=== PATIENT | female | born 1970 | race Hispanic/Latino ===

== ENCOUNTER 2019-10-06 17:36 | Emergency (ER) | payer BC ==
--- OUTSIDE RECORDS SUMMARY | 2019-10-06 17:37 | XMS REPORT ---
:1970 Author Organization [employer] Care Team Providers Name Role Phone Rodas, Na Provider Role Unavailable Allergies No Known Allergies Problems Problem Type Condition Code Onset Dates Condition Status Problem Vitamin D deficiency E55.9 Active Problem Hyperlipidemia E78.5 Active Problem Anxiety F41.9 Active Problem HUGO (obstructive sleep apnea) G47.33 Active Problem Other headache syndrome G44.89 Active Problem Type 2 diabetes mellitus without E11.9 Active complication, without long-term current use of insulin Problem Prediabetes R73.03 Active Problem Essential hypertension I10 Active Problem Feeling grief F43.21 Active Problem Daytime somnolence R40.0 Active Problem Obsessive-compulsive disorder F42 Active Problem Vitamin B 12 deficiency E53.8 Active Problem Viral gastroenteritis A08.4 Active Problem Snoring R06.83 Active Problem Obesity (BMI 35.0-39.9 without E66.9 Active comorbidity) Problem Obesity (BMI 30-39.9) E66.9 Active Problem Depression with anxiety F41.8 Active Problem Hyperglycemia R73.9 Active Medications No Known Medications Results No Known Results Summary Purpose eClinicalWorks Submission
--- OUTSIDE RECORDS SUMMARY | 2019-10-06 17:38 | XMS REPORT ---
:1970 Author Organization [employer] Care Team Providers Name Role Phone Rodas, Na Provider Role Unavailable Allergies, Adverse Reactions, Alerts Substance Reaction Event Type Bactrim DS Info Not Available Drug Allergy Problems Problem Type Condition Code Onset Dates Condition Status Assessment Other fatigue R53.83 Active Problem Obesity (BMI 30-39.9) E66.9 Active Assessment Obesity (BMI 30-39.9) E66.9 Active Problem Hyperglycemia R73.9 Active Assessment HUGO (obstructive sleep apnea) G47.33 Active Problem Vitamin D deficiency E55.9 Active Problem Hyperlipidemia E78.5 Active Problem Anxiety F41.9 Active Problem HUGO (obstructive sleep apnea) G47.33 Active Problem Other headache syndrome G44.89 Active Assessment Essential hypertension I10 Active Assessment Hyperlipidemia E78.5 Active Problem Type 2 diabetes mellitus without E11.9 Active complication, without long-term current use of insulin Assessment Depression with anxiety F41.8 Active Problem Prediabetes R73.03 Active Problem Essential hypertension I10 Active Problem Feeling grief F43.21 Active Problem Daytime somnolence R40.0 Active Problem Obsessive-compulsive disorder F42 Active Problem Vitamin B 12 deficiency E53.8 Active Assessment Type 2 diabetes mellitus without E11.9 Active complication, without long-term current use of insulin Problem Viral gastroenteritis A08.4 Active Problem Snoring R06.83 Active Problem Obesity (BMI 35.0-39.9 without E66.9 Active comorbidity) Problem Depression with anxiety F41.8 Active Medications Medication Code Code Instructions Start End Status Dosage System Date Date C[place] [facility] [place] 606[place]32837 10 MG Active 1 TABLET ONCE A DAY ORALLY 90 DAYS Losartan [facility] [place] 89443095737 25 Orally Once Active 1 tablet Potassium a day Alprazolam [place] 97650065423 0.25 MG Orally Active 1 tablet Twice a day prn anxiety Losartan [facility] [place] 48362568221 25 MG Orally Active 1 tablet Potassium Once a day Vitamin D3 ND 88123977009 50,000 PO once Active one tab a week Cyanocobalamin [facility] [place] [address]-14 1000 MCG Orally Active 1 tablet Once a day Crestor [facility] [place] 39057283302 10 MG Orally Active 1 tablet Once a day MetFORMIN HCl ER [facility] [place] 51261330388 500 MG Orally Aug 27, Active 1 tablet Once a day 2018 with evening meal Lexapro [facility] [place] 24794747722 20 MG Orally Active 1 tablet Once a day Azithromycin [facility] [place] 84533942350 250 MG Orally Sep 18, Active 2 tablets Once a day 2017 on the first day, then 1 tablet daily for 4 days Results No Known Results Summary Purpose eClinicalWorks Submission
--- NOTE | 2019-10-06 18:15 | ER ---
Nurse's Notes [facility] Name: Candida Sotomayor Age: 49 yrs Sex: Female : 1970 Arrival Date: 10/06/2019 Time: 17:36 Bed Waiting Private MD: Keesha Rodas Diagnosis: Presentation: 10/06 17:50 Presenting complaint: Patient states: felt dizzy and weakness in entire body while sg driving today, reports having went to [employer] and eating some hamburger yoel, has felt better now after arriving at the ER. Transition of care: patient was not received from another setting of care. Onset of symptoms was October 06, 2019. Risk Assessment: Do you want to hurt yourself or someone else? Patient reports no desire to harm self or others. Initial Sepsis Screen: Does the patient meet any 2 criteria? No. Patient's initial sepsis screen is negative. Does the patient have a suspected source of infection? No. Patient's initial sepsis screen is negative. Care prior to arrival: None. 17:50 Method Of Arrival: Ambulatory sg 17:50 Acuity: MISHA 3 sg Historical: - Allergies: 17:50 Sulfa (Sulfonamide Antibiotics); sg - PMHx: 17:50 Anxiety; sg - PSHx: 17:50 None; sg - Immunization history:: Adult Immunizations unknown. - Social history:: Smoking status: Patient/guardian denies using tobacco. - Ebola Screening: : Patient negative for fever greater than or equal to 101.5 degrees Fahrenheit, and additional compatible Ebola Virus Disease symptoms Patient denies exposure to infectious person Patient denies travel to an Ebola-affected area in the 21 days before illness onset No symptoms or risks identified at this time. Screenin:59 Abuse screen: Denies threats or abuse. Denies injuries from another. Nutritional sg screening: No deficits noted. VAN Screening: Arm Drift: Patient shows no arm weakness. Patient is VAN negative. Assessment: 18:12 Reassessment: pt wanted her blood sugar checked and was feeling better at time of iw triage. Vital Signs: 17:58 BP 137 / 79; Pulse 87; Resp 18; Temp 100.0(TE); Pulse Ox 99% on R/A; sg NIH Stroke Scale Scores: 17:59 NIHSS Score: 0 sg ED Course: 17:36 Patient arrived in ED. as 17:37 Keesha Rodas MD is Private Physician. as 17:49 Arm band placed on. sg 17:58 Triage completed. sg Administered Medications: No medications were administered Outcome: 18:13 Eloped from waiting room, before seeing physician Time discovered patient gone: iw October 06, 2019 at 18:13 18:13 Patient left the ED. iw NIH Stroke Scale - NIH Stroke Score Date: 10/06/2019 Time: 17:59 Total Score = 0 1a. Level of Consciousness (LOC) - 0(Alert) 1b. Level of Consciousness (LOC) (Year \T\ Age) - 0(Both) 1c. LOC Commands (Open \T\ Closes Eyes/Clinical Application Manager) - 0(Both) 2. Best Gaze (Lateral Gaze Paresis) - 0(Normal) 3. Visual Field Loss - 0(No visual loss) 4. Facial Palsy - 0(Normal) 5a. Left Arm: Motor (10-second hold) - 0(No drift) 5b. Right Arm: Motor (10-second hold) - 0(No drift) 6a. Left Leg: Motor (5-second hold - always test supine) - 0(No drift) 6b. Right Leg: Motor (5-second hold - always test supine) - 0(No drift) 7. Limb Ataxia (finger/nose \T\ heel/henderson - test with eyes open) - 0(Absent) 8. Sensory Loss (pinprick arms/legs/face) - 0(Normal) 9. Best Language: Aphasia (description/naming/reading) - 0(No aphasia) 10. Dysarthria (speech clarity - read or repeat words) - 0(Normal) 11. Extinction and Inattention (visual/tactile/auditory/spatial/personal) - 0(No abnormality) Initials: sg Signatures: Miah Lorenz, RN RN sg Linda Ham Irene, RN RN iw
[2019-10-06 21:24] VITALS: BP 137/79; TEMP 100; O2SAT 99
== END 2019-10-06 18:13 | disposition left against medical advice (07) ==
LOC: ER 17:36
DX: Z53.21 Procedure and treatment not carried out due to patient leaving prior to being seen by health care provider (principal); Z88.2 Allergy status to sulfonamides
CPT/HCPCS: 99281

== ENCOUNTER 2023-03-14 00:58 | Emergency (ER) | payer BC ==
--- OUTSIDE RECORDS SUMMARY | 2023-03-14 01:02 | XMS REPORT | Continuity of Care Document ---
:1970 Author Organization [facility] t Address [address] [place] [address] Care Team Providers Name Role Phone Rimma Butler Attending Clinician Unavailable Keesha Rodas Attending Clinician Unavailable Payers Payer Name Policy Type Policy Number Effective Date Expiration Date Chana abdul [facility] [id number] 2021 CHOICE/CHOICE 00:00:00 PLUS [employer] Blue 6 [id number] 2022 [facility] 00:00:00 [place] [id number] 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 - [facility] [id number] Depression Problem Co mmon with Spirit anxiety - [facility] [id number] Body mass Problem Com mon index Spirit [BMI] - [facility] 37.0-37.9, [facility] Anxiety Anxiety Problem Common [facility] Hyperlipid Hyperlipid Problem C ommon emia emia [facility] [id number] Prediabete Problem Co mmon s [facility] Vitamin D Vitamin D Problem Com mon deficiency deficiency Sp jonathan [facility] [id number] Hyperglyce Problem Com mon gaurav [facility] [id number] Essential Problem Comm on hypertensi [facility] on [facility] Obstructiv HUGO Problem Commo n e sleep (obstructi Spiri t apnea ve sleep - [facility] syndrome apnea) [facility] 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 - [facility] without without complicati complicati Yara kes on on, [facility] long-term current use of insulin [id number] Stress at Problem Com mon home [facility] Allergies, Adverse Reactions, Alerts Allergy Allergy Status Severity Reaction(s) Onset Inactive Treating Comm ents Source Name Type Date Date Clinician sulfamet sulfamet Active Unknown Commo n hoxazole hoxazole [facility] / / - [facility] trimetho trimetho [facility] Social History Social Habit Start Date Stop Date Quantity Comments Source History of Tobacco Use Co mmon [facility] Sex Assigned At Com [facility] Smoking Status Start Date Stop Date Source Never Smoker Common [facility] Medications Ordered Filled Start Stop Current Ordering Indication Dosage Frequency Signature Comments Components Source Medication Medication Date Date Medication? Clinician (SIG) Name Name Mehnaz Mehnaz 2021-10 No Trulicity 1.5mg/0.5ml 1.5mg/0.5ml 12 1.5mg/0.5m 00:00: l 00 Allydaphne Allydaphne 2021-10 No Trulicity 1.5mg/0.5ml 1.5mg/0.5ml 12 1.5mg/0.5m 00:00: l 00 Mounjaro Mounjaro 2021-10 Mounjaro 2.5 2.5 10-30 1206 2.5 MG/0.5ML MG/0.5ML 00:00: 00:00 MG/0.5ML 00 :00 Ozempic Ozempic No Ozempic (0.25 or (0.25 or 8-01 (0.25 or 0.5 0.5 00:00: 0.5 MG/DOSE) 2 MG/DOSE) 2 00 MG/DOSE) 2 MG/1.5ML MG/1.5ML MG/1.5ML Ozempic Ozempic No Ozempic (0.25 or (0.25 or 8-01 (0.25 or 0.5 0.5 00:00: 0.5 MG/DOSE) 2 MG/DOSE) 2 00 MG/DOSE) 2 MG/1.5ML MG/1.5ML MG/1.5ML Ozempic Ozempic 2021- No Ozempic (0.25 or (0.25 or 8-01 09-30 (0.25 or 0.5 0.5 00:00: 00:00 0.5 MG/DOSE) 2 MG/DOSE) 2 00 :00 MG/DOSE) 2 MG/1.5ML MG/1.5ML MG/1.5ML ALPRAZolam ALPRAZolam 2020-10 No 1{table ALPRAZolam 0.25 MG 0.25 MG 0-28 t} 0.25 MG 00:00: 00 MetFORMIN MetFORMIN 2018- Yes Na Rodas 1 tablet Common HCl ER HCl ER 0-29 with Spirit 00:00: evening - [facility] 00 meal [facility] Alprazolam Alprazolam Yes Na Rodas 1 tablet Common 07-10 Spirit 00:00: - [facility] Losartan Losartan Yes Na Rodas 1/2 tablet Common Potassium Potassium 9-11 Spiri t 00:00: - [facility] 00 [facility] Cyanocobala Cyanocobala Yes Na Rodas 1 tablet Common min min [facility] Vitamin D3 Vitamin D3 Yes Na Rodas one tab Common [facility] Lexapro Lexapro Yes Na Rodas 1 tablet Co [facility] Crestor Crestor Yes Na Rodas 1 tablet Co [facility] Lexapro Lexapro Yes Na Rodas 1 tablet Co [facility] Losartan Losartan Yes Na Rodas 1 tablet Common Potassium Potassium Spiri - [facility] Crestor Crestor Yes Na Rodas 1 TABLET Co mmon ONCE A DAY Spirit ORALLY 90 - [facility] DAYS [facility] metFORMIN metFORMIN No 1{table QD metFORMIN HCl ER 500 HCl ER 500 t_with_ HCl ER 500 MG MG evening MG _meal} Cyanocobala Cyanocobala No 1{table QD Cyanocobal min 1000 min 1000 t} nunez 1000 MCG MCG MCG Crestor 10 Crestor 10 No 1{table QD Crestor 10 MG MG t} MG Crestor 10 Crestor 10 No Crestor 10 MG MG MG Losartan Losartan No QD Losartan Potassium Potassium Potassium 25 MG 25 MG 25 MG Lexapro 20 Lexapro 20 No 1{table QD Lexapro 20 MG MG t} MG Lexapro 20 Lexapro 20 No 1{table QD Lexapro 20 MG MG t} MG Cyanocobala Cyanocobala No 1{table QD Cyanocobal min 1000 min 1000 t} nunez 1000 MCG MCG MCG Vitamin D3 Vitamin D3 No Vitamin D3 50,000 50,000 50,000 Crestor 10 Crestor 10 No 1{table QD Crestor 10 MG MG t} MG Losartan Losartan No 1{table QD Losartan Potassium Potassium t} Potassium 25 25 25 ALPRAZolam ALPRAZolam No 1{table ALPRAZolam 0.25 MG 0.25 MG t} 0.25 MG metFORMIN metFORMIN No 1{table QD metFORMIN HCl ER 500 HCl ER 500 t_with_ HCl ER 500 MG MG evening MG _meal} Losartan Losartan No QD Losartan Potassium Potassium Potassium 25 MG 25 MG 25 MG Crestor 10 Crestor 10 No Crestor 10 MG MG MG Lexapro 20 Lexapro 20 No 1{table QD Lexapro 20 MG MG t} MG Lexapro 20 Lexapro 20 No 1{table QD Lexapro 20 MG MG t} MG Cyanocobala Cyanocobala No 1{table QD Cyanocobal min 1000 min 1000 t} nunez 1000 MCG MCG MCG Vitamin D3 Vitamin D3 No Vitamin D3 50,000 50,000 50,000 Crestor 10 Crestor 10 No 1{table QD Crestor 10 MG MG t} MG Losartan Losartan No 1{table QD Losartan Potassium Potassium t} Potassium 25 25 25 ALPRAZolam ALPRAZolam No 1{table ALPRAZolam 0.25 MG 0.25 MG t} 0.25 MG metFORMIN metFORMIN No 1{table QD metFORMIN HCl ER 500 HCl ER 500 t_with_ HCl ER 500 MG MG evening MG _meal} Losartan Losartan No QD Losartan Potassium Potassium Potassium 25 MG 25 MG 25 MG Crestor 10 Crestor 10 No Crestor 10 MG MG MG Lexapro 20 Lexapro 20 No 1{table QD Lexapro 20 MG MG t} MG metFORMIN metFORMIN No 1{table QD metFORMIN HCl ER 500 HCl ER 500 t_with_ HCl ER 500 MG MG evening MG _meal} Crestor 10 Crestor 10 No Crestor 10 MG MG MG Cyanocobala Cyanocobala No 1{table QD Cyanocobal min 1000 min 1000 t} nunez 1000 MCG MCG MCG Losartan Losartan No 1{table QD Losartan Potassium Potassium t} Potassium 25 25 25 Crestor 10 Crestor 10 No 1{table QD Crestor 10 MG MG t} MG Lexapro 20 Lexapro 20 No 1{table QD Lexapro 20 MG MG t} MG Losartan Losartan No QD Losartan Potassium Potassium Potassium 25 MG 25 MG 25 MG Lexapro 20 Lexapro 20 No 1{table QD Lexapro 20 MG MG t} MG Vitamin D3 Vitamin D3 No Vitamin D3 50,000 50,000 50,000 ALPRAZolam ALPRAZolam No 1{table ALPRAZolam 0.25 MG 0.25 MG t} 0.25 MG Lexapro 20 Lexapro 20 No 1{table QD Lexapro 20 MG MG t} MG Crestor 10 Crestor 10 No Crestor 10 MG MG MG Cyanocobala Cyanocobala No 1{table QD Cyanocobal min 1000 min 1000 t} nunez 1000 MCG MCG MCG Losartan Losartan No 1{table QD Losartan Potassium Potassium t} Potassium 25 25 25 Crestor 10 Crestor 10 No 1{table QD Crestor 10 MG MG t} MG Vitamin D3 Vitamin D3 No Vitamin D3 50,000 50,000 50,000 Lexapro 20 Lexapro 20 No 1{table QD Lexapro 20 MG MG t} MG metFORMIN metFORMIN No 1{table QD metFORMIN HCl ER 500 HCl ER 500 t_with_ HCl ER 500 MG MG evening MG _meal} Losartan Losartan No QD Losartan Potassium Potassium Potassium 25 MG 25 MG 25 MG ALPRAZolam ALPRAZolam No 1{table ALPRAZolam 0.25 MG 0.25 MG t} 0.25 MG Lexapro 20 Lexapro 20 No 1{table QD Lexapro 20 MG MG t} MG Crestor 10 Crestor 10 No Crestor 10 MG MG MG Cyanocobala Cyanocobala No 1{table QD Cyanocobal min 1000 min 1000 t} nunez 1000 MCG MCG MCG Losartan Losartan No 1{table QD Losartan Potassium Potassium t} Potassium 25 25 25 Crestor 10 Crestor 10 No 1{table QD Crestor 10 MG MG t} MG Vitamin D3 Vitamin D3 No Vitamin D3 50,000 50,000 50,000 Lexapro 20 Lexapro 20 No 1{table QD Lexapro 20 MG MG t} MG metFORMIN metFORMIN No 1{table QD metFORMIN HCl ER 500 HCl ER 500 t_with_ HCl ER 500 MG MG evening MG _meal} Losartan Losartan No QD Losartan Potassium Potassium Potassium 25 MG 25 MG 25 MG ALPRAZolam ALPRAZolam No 1{table ALPRAZolam 0.25 MG 0.25 MG t} 0.25 MG Cyanocobala Cyanocobala No 1{table QD Cyanocobal min 1000 min 1000 t} nunez 1000 MCG MCG MCG Lexapro 20 Lexapro 20 No 1{table QD Lexapro 20 MG MG t} MG Vitamin D3 Vitamin D3 No Vitamin D3 50,000 50,000 50,000 metFORMIN metFORMIN No 1{table QD metFORMIN HCl ER 500 HCl ER 500 t_with_ HCl ER 500 MG MG evening MG _meal} ALPRAZolam ALPRAZolam No 1{table ALPRAZolam 0.25 MG 0.25 MG t} 0.25 MG Ozempic Ozempic No Ozempic (0.25 or (0.25 or (0.25 or 0.5 0.5 0.5 MG/DOSE) 2 MG/DOSE) 2 MG/DOSE) 2 MG/1.5ML MG/1.5ML MG/1.5ML Crestor 10 Crestor 10 No 1{table QD Crestor 10 MG MG t} MG Losartan Losartan No QD Losartan Potassium Potassium Potassium 25 MG 25 MG 25 MG Cyanocobala Cyanocobala No 1{table QD Cyanocobal min 1000 min 1000 t} nunez 1000 MCG MCG MCG Losartan Losartan No QD Losartan Potassium Potassium Potassium 25 MG 25 MG 25 MG ALPRAZolam ALPRAZolam No 1{table ALPRAZolam 0.25 MG 0.25 MG t} 0.25 MG Crestor 10 Crestor 10 No 1{table QD Crestor 10 MG MG t} MG Ozempic Ozempic No Ozempic (0.25 or (0.25 or (0.25 or 0.5 0.5 0.5 MG/DOSE) 2 MG/DOSE) 2 MG/DOSE) 2 MG/1.5ML MG/1.5ML MG/1.5ML Ozempic Ozempic No Ozempic (0.25 or (0.25 or (0.25 or 0.5 0.5 0.5 MG/DOSE) 2 MG/DOSE) 2 MG/DOSE) 2 MG/1.5ML MG/1.5ML MG/1.5ML Lexapro 20 Lexapro 20 No 1{table QD Lexapro 20 MG MG t} MG Vitamin D3 Vitamin D3 No Vitamin D3 50,000 50,000 50,000 Losartan Losartan No QD Losartan Potassium Potassium Potassium 25 MG 25 MG 25 MG Vitamin D3 Vitamin D3 No Vitamin D3 50,000 50,000 50,000 Crestor 10 Crestor 10 No 1{table QD Crestor 10 MG MG t} MG Lexapro 20 Lexapro 20 No 1{table QD Lexapro 20 MG MG t} MG ALPRAZolam ALPRAZolam No 1{table ALPRAZolam 0.25 MG 0.25 MG t} 0.25 MG Cyanocobala Cyanocobala No 1{table QD Cyanocobal min 1000 min 1000 t} nunez 1000 MCG MCG MCG Lexapro 20 Lexapro 20 No 1{table QD Lexapro 20 MG MG t} MG Vitamin D3 Vitamin D3 No Vitamin D3 50,000 50,000 50,000 Crestor 10 Crestor 10 No 1{table QD Crestor 10 MG MG t} MG Losartan Losartan No QD Losartan Potassium Potassium Potassium 25 MG 25 MG 25 MG Cyanocobala Cyanocobala No 1{table QD Cyanocobal min 1000 min 1000 t} nunez 1000 MCG MCG MCG ALPRAZolam ALPRAZolam No 1{table ALPRAZolam 0.25 MG 0.25 MG t} 0.25 MG ALPRAZolam ALPRAZolam No 1{table ALPRAZolam 0.25 MG 0.25 MG t} 0.25 MG Cyanocobala Cyanocobala No 1{table QD Cyanocobal min 1000 min 1000 t} nunez 1000 MCG MCG MCG Crestor 10 Crestor 10 No 1{table QD Crestor 10 MG MG t} MG Vitamin D3 Vitamin D3 No Vitamin D3 50,000 50,000 50,000 Losartan Losartan No QD Losartan Potassium Potassium Potassium 25 MG 25 MG 25 MG Lexapro 20 Lexapro 20 No 1{table QD Lexapro 20 MG MG t} MG Cyanocobala Cyanocobala No 1{table QD Cyanocobal min 1000 min 1000 t} nunez 1000 MCG MCG MCG Lexapro 20 Lexapro 20 No 1{table QD Lexapro 20 MG MG t} MG Vitamin D3 Vitamin D3 No Vitamin D3 50,000 50,000 50,000 metFORMIN metFORMIN No 1{table QD metFORMIN HCl ER 500 HCl ER 500 t_with_ HCl ER 500 MG MG evening MG _meal} ALPRAZolam ALPRAZolam No 1{table ALPRAZolam 0.25 MG 0.25 MG t} 0.25 MG Ozempic Ozempic No Ozempic (0.25 or (0.25 or (0.25 or 0.5 0.5 0.5 MG/DOSE) 2 MG/DOSE) 2 MG/DOSE) 2 MG/1.5ML MG/1.5ML MG/1.5ML Crestor 10 Crestor 10 No 1{table QD Crestor 10 MG MG t} MG Losartan Losartan No QD Losartan Potassium Potassium Potassium 25 MG 25 MG 25 MG Vitamin D3 Vitamin D3 No Vitamin D3 50,000 50,000 50,000 Losartan Losartan No 1{table QD Losartan Potassium Potassium t} Potassium 25 25 25 Lexapro 20 Lexapro 20 No 1{table QD Lexapro 20 MG MG t} MG Lexapro 20 Lexapro 20 No 1{table QD Lexapro 20 MG MG t} MG Losartan Losartan No QD Losartan Potassium Potassium Potassium 25 MG 25 MG 25 MG Crestor 10 Crestor 10 No Crestor 10 MG MG MG Crestor 10 Crestor 10 No 1{table QD Crestor 10 MG MG t} MG Cyanocobala Cyanocobala No 1{table QD Cyanocobal min 1000 min 1000 t} nunez 1000 MCG MCG MCG metFORMIN metFORMIN No 1{table QD metFORMIN HCl ER 500 HCl ER 500 t_with_ HCl ER 500 MG MG evening MG _meal} Lexapro 20 Lexapro 20 No 1{table QD Lexapro 20 MG MG t} MG ALPRAZolam ALPRAZolam No 1{table ALPRAZolam 0.25 MG 0.25 MG t} 0.25 MG Losartan Losartan No 1{table QD Losartan Potassium Potassium t} Potassium 25 25 25 Vitamin D3 Vitamin D3 No Vitamin D3 50,000 50,000 50,000 Immunizations Ordered Immunization Filled Immunization Date Status Commen ts Source Name Name Afluria single dose Afluria single dose 2020-07-27 Completed [facility] 15:01:00 [facility] Afluria single dose Afluria single dose 2020-07-27 Completed [facility] 15:01:00 [facility] Afluria single dose Afluria single dose 2020-07-27 Completed [facility] 15:01:00 [facility] Afluria single dose Afluria single dose 2020-07-27 Completed [facility] 15:01:00 [facility] Afluria single dose Afluria single dose 2020-07-27 Completed Common [facility] 15:01:00 [facility] Afluria single dose Afluria single dose 2020-07-27 Completed Common [facility] 15:01:00 [facility] Afluria single dose Afluria single dose 2020-07-27 Completed Common [facility] 15:01:00 [facility] Afluria single dose Afluria single dose 2020-07-27 Completed Common [facility] 15:01:00 [facility] Afluria single dose Afluria single dose 2020-07-27 Completed Common [facility] 15:01:00 [facility] Afluria single dose Afluria single dose 2020-07-27 Completed Common [facility] 15:01:00 [facility] Afluria single dose Afluria single dose 2020-07-27 Completed Common [facility] 15:01:00 [facility] Afluria single dose Afluria single dose 2020-07-27 Completed Common [facility] 15:01:00 [facility] Afluria single dose Afluria single dose 2020-07-27 Completed Common [facility] 15:01:00 [facility] Vital Signs Vital Name Observation Time Observation Value Comments Source height 2022-09-21 09:40:00 61.50 [in_i] Common S pirit [facility] weight 2022-09-21 09:40:00 184.7 [lb_av] [facility] Spirit [facility] bmi 2022-09-21 09:40:00 34.33 kg/m2 Common S pirit - [facility] height 2022-08-08 09:40:00 61.50 [in_i] Common S pirit [facility] weight 2022-08-08 09:40:00 184.6 [lb_av] [facility] temperature 2022-08-08 09:40:00 97.7 [degF] Common S pirit [facility] bmi 2022-08-08 09:40:00 34.31 kg/m2 Common S pirit [facility] oximetry 2022-08-08 09:40:00 95 % Common S pirit [facility] respiratory rate 2022-08-08 09:40:00 16 /min Comm on [facility] blood pressure 2022-08-08 09:40:00 135 mm[Hg] Common Spirit - systolic [facility] blood pressure 2022-08-08 09:40:00 66 mm[Hg] Common Spirit - diastolic [facility] height 2022-07-07 16:40:00 61.50 [in_i] [facility] 2022-07-07 16:40:00 186.6 [lb_av] [facility] temperature 2022-07-07 16:40:00 97.9 [degF] Common S pirit [facility] bmi 2022-07-07 16:40:00 34.68 kg/m2 Common S pirit [facility] oximetry 2022-07-07 16:40:00 95 % Common S pirit [facility] respiratory rate 2022-07-07 16:40:00 16 /min Comm on [facility] blood pressure 2022-07-07 16:40:00 131 mm[Hg] Common Spirit - systolic [facility] blood pressure 2022-07-07 16:40:00 78 mm[Hg] Common Spirit - diastolic [facility] height 2022-05-30 17:00:00 61.50 [in_i] Common S pirit - [facility] weight 2022-05-30 17:00:00 198 [lb_av] Common [facility] bmi 2022-05-30 17:00:00 36.8 kg/m2 [facility] height 2021-08-26 11:20:00 61.50 [in_i] [facility] weight 2021-08-26 11:20:00 193 [lb_av] [facility] bmi 2021-08-26 11:20:00 35.87 kg/m2 [facility] Procedures This patient has no known procedures. Encounters Start End Encounter Admission Attending Care Care Encounter Source Date/Time Date/Time Type Type Clinicians Facility Department ID 2022-12-15 Outpatient Butler, STLMLC STLMLC [id number] Common 14:05:00 Rimma [id number] [facility] 2022-09-20 Outpatient Rodas, Na STLMLC STLMLC [id number] 2 Common 09:40:01 [facility] 2022-09-19 Outpatient Rodas, Na STLMLC STLMLC [id number] Common 08:31:00 [facility] 2022-09-15 Outpatient Rodas, Na STLMLC STLMLC [id number] 2 Common 15:34:01 [facility] 2022-05-30 Outpatient [facility] [id number] CO 13:34:18 [id number] [facility] 2022-04-25 Outpatient Rodas, Na STLMLC STLMLC [id number] 2 Common 10:42:00 [facility] 2022-02-22 Outpatient Rodas, Na STLMLC STLMLC [id number] 2 Common 09:47:01 [facility] 2021-11-24 Outpatient Rodas, Na STLMLC STLMLC [id number] 2 Common 14:01:03 [id number] [facility] 2021-11-24 Outpatient Rodas, Na STLMLC STLMLC [id number] 2 Common 12:57:00 [id number] [facility] 2021-11-24 Outpatient Rodas, Na STLMLC STLMLC [id number] 2 Common 12:56:34 [id number] [facility] 2021-11-24 Outpatient Rodas, Na STLMLC STLMLC [id number] 2 Common 12:17:50 [id number] [facility] 2021-11-24 Outpatient Rodas, Na STLMLC STLMLC [id number] 2 Common 12:14:12 [id number] [facility] 2021-11-24 Outpatient Rodas, Na STLMLC STLMLC [id number] 2 Common 11:40:43 [id number] [facility] 2021-11-24 Outpatient Rodas, Na STLMLC STLMLC [id number] 2 Common 11:18:09 [id number] [facility] 2022-09-21 2022-09-21 OFFICE STLMLC STLMLC [id number] Co mmon 00:00:00 00:00:00 VISIT [facility] PT [facility] LEVEL 4 [facility] 2022-09-06 2022-09-06 (TEL) STLMLC STLMLC [id number] Co mmon 00:00:00 00:00:00 [facility] 2022-08-30 2022-08-30 (TEL) STLMLC STLMLC [id number] Co mmon 00:00:00 00:00:00 [facility] 2022-08-08 2022-08-08 OFFICE STLMLC STLMLC [id number] Co mmon 00:00:00 00:00:00 VISIT EST Spir it PT LEVEL 3 [facility] 2022-07-07 2022-07-07 OFFICE STLMLC STLMLC [id number] Co mmon 00:00:00 00:00:00 VISIT EST Spir it PT LEVEL 3 [facility] 2022-06-16 2022-06-16 (TEL) STLMLC STLMLC [id number] Co mmon 00:00:00 00:00:00 [facility] 2022 2022 (TEL) STLMLC STLMLC [id number] Co mmon 00:00:00 00:00:00 [facility] 2022-05-30 2022-05-30 OFFICE STLMLC STLMLC [id number] Co mmon 00:00:00 00:00:00 VISIT Spirit ESTAB PT - [facility] LEVEL 4 [facility] 2022-05-17 2022-05-17 (TEL) STLMLC STLMLC [id number] Co mmon 00:00:00 00:00:00 [facility] 2022-02-23 2022-02-23 OFFICE STLMLC STLMLC [id number] Co mmon 00:00:00 00:00:00 VISIT [facility] ESTAB PT - [facility] LEVEL [address] [place] [address] 2021-11-26 2021-11-26 OFFICE STLMLC STLMLC [id number] Co mmon 00:00:00 00:00:00 VISIT Spirit ESTAB PT - [facility] LEVEL 4 [facility] 2021-08-26 2021-08-26 OFFICE STLMLC STLMLC [id number] Co mmon 00:00:00 00:00:00 VISIT [facility] ESTAB PT - [facility] LEVEL 4 [facility] 2021-05-26 2021-05-26 Outpatient STLMLC STLMLC [id number] Common 00:00:00 00:00:00 [facility] 2021-02-24 2021-02-24 Outpatient STLMLC STLMLC [id number] Common 00:00:00 00:00:00 [facility] 2021-01-28 2021-01-28 Outpatient STLMLC STLMLC [id number] Common 00:00:00 00:00:00 [facility] 2020-11-04 2020-11-04 Outpatient STLMLC STLMLC [id number] Common 00:00:00 00:00:00 [facility] 2020-07-27 2020-07-27 Outpatient STLMLC STLMLC [id number] Common 00:00:00 00:00:00 [facility] 2020-07-01 2020-07-01 [facility] [id number] Common 11:40:00 11:40:[address] Sp[address] [facility] 2020-02-24 2020-02-24 [facility] [id number] Common 13:00:00 13:00:[address] Sp[address] [facility] 2019-11-25 2019-11-25 [facility] [id number] Common 13:40:00 13:40:[address] Sp[address] [facility] 2019-08-27 2019-08-27 [facility] [id number] Common 11:40:00 11:40:[address] Sp[address] [facility] 2019-08-14 2019-08-14 [facility] [id number] Common 16:06:00 16:06:[address] [facility] 2019-07-29 2019-07-29 [facility] [id number] Common 10:13:00 10:13:[address] [facility] 2019-04-29 2019-04-29 [facility] [id number] Common 15:00:00 15:00:[address] [facility] 2018-12-17 2018-12-17 [facility] [id number] Common 09:45:00 09:45:[address] [facility] 2018-10-19 2018-10-19 [facility] [id number] Common 09:00:00 09:00:[address] [facility] 2018-10-17 2018-10-17 [facility] [id number] Common 13:13:00 13:13:[address] [facility] 2018-09-18 2018-09-18 [facility] [id number] Common 15:00:00 15:00:[address] Sp[address] [facility] 2018-07-16 2018-07-16 [facility] [id number] Common 10:24:00 10:24:[address] [facility] 2018-07-10 2018-07-10 [facility] [id number] Common 15:30:00 15:30:[address] [facility] 2018-05-28 2018-05-28 [facility] [id number] Common 15:30:00 15:30:[address] [facility] Results This patient has no known results.
[2023-03-14] MEDS ORDERED: METOCLOPRAMIDE 10 MG/2mL INJ ONE (01:30)
[2023-03-14] MEDS ORDERED: NA CHLORIDE 0.9% 1,000 ML ONE (01:31)
[2023-03-14] MEDS ORDERED: ONDANSETRON 4 MG/2 ML VIAL ONE (01:31)
[2023-03-14] MEDS ORDERED: DIAZEPAM 10 MG/2 ML INJ SYRINGE ONE (01:31)
[2023-03-14 01:55] LABS: Albumin 3.8 g/dL (3.4-5.0); Bilirubin Total 0.2 mg/dL (0.2-1.0); Potassium 2.8 mEq/L (3.5-5.1); Protein, Total 7.9 g/dL (6.4-8.2)
[2023-03-14 02:03] LABS: Absolute Lymphocytes (CBC) 3.8 K/uL (0.7-4.9); Hematocrit 38.4 % (36.0-45.0); Lymphocytes % 31.5 % (15.3-44.8); MCV 89.8 fL (80-100); MPV 7.3 fL (7.6-11.3); RBC Red Blood Cell Count 4.27 M/uL (3.86-4.86)
[2023-03-14] MEDS ORDERED: POTASSIUM CL SA 10 MEQ TAB PO ONE (03:15)
--- NOTE | 2023-03-14 03:20 | EDPHYS ---
Physician Documentation [facility] Name: Candida Sotomayor Age: 52 yrs Sex: Female : 1970 Arrival Date: 03/14/2023 Time: 00:58 Bed 6 Private MD: ED Physician Damion Monroy HPI: 03/14 01:04 This 52 yrs old Female presents to ER via Unassigned with complaints of sp4 Dizziness, near syncope. 03:14 52-year-old female presents with acute onset of vertigo, dizziness, near syncopal sp4 episode at home and nausea. Patient arrived with EMS with acute dizziness and overall feeling unwell. Patient has never had this problem before. Patient has history of diabetes, hypertension, hyperlipidemia, patient is managing her diabetes with metformin, hypertension with losartan, hyperlipidemia with statin. . Patient vomited 1 time in the emergency room. She denied headache, denied palpitations. . 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 - Social history:: Smoking status: Patient denies any tobacco usage or history of. - Family history:: not pertinent. ROS: 03:14 Constitutional: Negative for fever, chills, and weight loss, positive near syncope and sp4 dizziness Eyes: Negative for injury, pain, redness, and discharge, ENT: Negative for injury, pain, and discharge, positive for vertigo Neck: Negative for injury, pain, and swelling, Cardiovascular: Negative for chest pain, palpitations, and edema, Respiratory: Negative for shortness of breath, cough, wheezing, and pleuritic chest pain, Abdomen/GI: Negative for abdominal pain, vomiting, diarrhea, and constipation, positive for nausea Back: Negative for injury and pain, : Negative for injury, bleeding, discharge, and swelling, MS/Extremity: Negative for injury and deformity, Skin: Negative for injury, rash, and discoloration, Neuro: Negative for headache, weakness, numbness, tingling, and seizure, positive for dizziness and vertigo Psych: Negative for depression, anxiety, Allergy/Immunology: Negative for hives, rash, and allergies Endocrine: Negative for neck swelling, polydipsia, polyuria, polyphagia, and weight changes Hematologic/Lymphatic: Negative for swollen nodes, abnormal bleeding, and unusual bruising Exam: 03:14 Constitutional: This is a well developed, well nourished patient who is awake, alert, sp4 ill-appearing on arrival nontoxic, Head/Face: Normocephalic, atraumatic. Eyes: Pupils equal round and reactive to light, extra-ocular motions intact. Lids and lashes normal. Conjunctiva and sclera are not injected. Cornea within normal limits. Periorbital areas with no swelling, redness, or edema. ENT: Nares patent. No nasal discharge, no septal abnormalities noted. Tympanic membranes are normal and external auditory canals are clear. Oropharynx with no redness, swelling, or masses, exudates, or evidence of obstruction, uvula midline. Mucous membranes moist. Neck: Trachea midline, no thyromegaly or masses palpated, and no cervical lymphadenopathy. Supple, full range of motion without nuchal rigidity, or vertebral point tenderness. No Meningismus. Chest/axilla: Normal chest wall appearance and motion. Nontender with no deformity. No lesions are appreciated. Cardiovascular: Regular rate and rhythm with a normal S1 and S2. No gallops, murmurs, or rubs. Normal PMI, no JVD. No pulse deficits. Respiratory: Lungs have equal breath sounds bilaterally, clear to auscultation and percussion. No rales, rhonchi or wheezes noted. No increased work of breathing, no retractions or nasal flaring. Abdomen/GI: Soft, non-tender, with normal bowel sounds. No distension or tympany. No guarding or rebound. No evidence of tenderness throughout. Back: No spinal tenderness. No costovertebral tenderness. Pelvic Exam: Normal external genitalia. Speculum exam with closed cervical os, no discharge or bleeding noted. Bimanual exam with normal adnexa, no adnexal or cervical motion tenderness. Normal uterus. Female : Normal external genitalia. Skin: Warm, dry with normal turgor. Normal color with no rashes, no lesions, and no evidence of cellulitis. MS/ Extremity: Pulses equal, no cyanosis. Neurovascular intact. Full, normal range of motion. Neuro: Awake and alert, GCS 15, oriented to person, place, time, and situation. Cranial nerves II-XII grossly intact. Motor strength 5/5 in all extremities. Sensory grossly intact. Psych: Awake, alert, with orientation to person, place and time. Behavior, mood, and affect are within normal limits Vital Signs: 01:04 BP 156 / 92; Pulse 95; Resp 16; Temp 98.1(O); Pulse Ox 99% on R/A; Weight 87.09 kg (R); ll3 Height 4 ft. 11 in. (R); Pain 0/10; 02:00 BP 129 / 76; Pulse 90; Resp 16; Pulse Ox 96% on R/A; ll3 03:08 BP 142 / 79; Pulse 100; Resp 16; Pulse Ox 99% on R/A; ll3 01:04 Body Mass Index 38.78 (87.09 kg, 149.86 cm) ll3 01:04 Pain Scale: Adult ll3 MDM: 01:05 Patient medically screened. sp4 03:14 Differential Diagnosis altered mental status, Vertigo, near syncope,. Data reviewed: sp4 vital signs, nurses notes, EMS record, old medical records, lab test result(s), CBC, electrolytes, hepatic panel. Consideration of Admission/Observation Escalation of care including admission/observation considered. ED course: Patient has much improved after IV Reglan, IV Zofran, diazepam, and IV hydration. Patient has much improved and is stable for discharge. Will advise bedrest and as needed Valium for vertigo and as needed Zofran for nausea . 03/14 01:05 Order name: CBC with Diff; Complete Time: 03:03 sp4 03/14 01:05 Order name: CMP; Complete Time: 03:03 sp4 03/14 01:05 Order name: Lipase; Complete Time: 03:03 sp4 03/14 01:05 Order name: IV Saline Lock; Complete Time: :28 sp4 03/14 01:05 Order name: Labs collected and sent; Complete Time: : sp4 Administered Medications: :25 Drug: NS 0.9% IV 1000 ml Route: IV; Rate: 1 bolus; Site: right forearm; pf1 01:25 Drug: Ondansetron IVP 4 mg Route: IVP; Site: right forearm; pf1 03:19 Follow up: Response: No adverse reaction; Marked relief of symptoms ll3 02:12 Not Given (Patient Refused): metoCLOPramide IVP 10 mg IVP once; over 1 to 2 minutes pf1 02:15 Not Given (Patient Refused): Diazepam IVP 5 mg IVP once pf1 03:11 Drug: Potassium Chloride PO 40 mEq Route: PO; ll3 03:38 Follow up: Response: No adverse reaction ll3 Disposition Summary: 03/14/23 03:20 Discharge Ordered Location: Home sp4 Problem: new sp4 Symptoms: have improved sp4 Condition: Stable sp4 Diagnosis - Other peripheral vertigo, bilateral sp4 Followup: sp4 - With: Private Physician - When: 5 - 6 days - Reason: Recheck today's complaints Discharge Instructions: - Discharge Summary Sheet sp4 - Benign Positional Vertigo sp4 Forms: - Work release form ll3 - Thank You Letter sp4 Prescriptions: - Valium 5 mg Oral Tablet - take 1 tablet by ORAL route every 8 hours As needed As needed for Vertigo; 20 sp4 tablet; Refills: 0, Product Selection Permitted - Zofran 4 mg Oral Tablet - take 1 tablet by ORAL route every 6 hours As needed PRN nausea; 30 tablet; sp4 Refills: 0, Product Selection Permitted Signatures: Dispatcher [employer] Brittany Medrano RN RN ll3 Debbie Mayers RN RN pf1 Damion Monroy MD MD sp4
--- NOTE | 2023-03-14 03:20 | ER ---
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 Coronavirus screen: Vaccine status: Patient reports receiving the 2nd dose of the covid vaccine. At this time, the client does not indicate any symptoms associated with coronavirus-19. Ebola Screen: No symptoms or risks identified at this time. Initial Sepsis Screen: Does the patient meet any 2 criteria? HR > 90 bpm. No. Patient's initial sepsis screen is negative. Does the patient have a suspected source of infection? No. Patient's initial sepsis screen is negative. Risk Assessment: Do you want to hurt yourself or someone else? Patient reports no desire to harm self or others. Onset of symptoms was March 14, 2023 at 00:30. Care prior to arrival: Medication(s) given: Xanax 0.12 mg. 01:04 Method Of Arrival: EMS: [facility] 3 01:04 Acuity: MISHA 3 ll3 Triage Assessment: 01:06 General: Appears uncomfortable, Behavior is calm, cooperative. Pain: Denies pain. EENT: ll3 Reports dry mouth. 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 Neuro: Level of Consciousness is awake, alert, obeys commands, Oriented to person, place, time, situation. GI: Reports nausea. Derm: Skin is pink, warm \T\ dry. 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 - Social history:: Smoking status: Patient denies any tobacco usage or history of. - Family history:: not pertinent. Screenin:17 [facility] ED Fall Risk Assessment (Adult) History of falling in the last 3 months, ll3 including since admission No falls in past 3 months (0 pts) Confusion or Disorientation No (0 pts) Intoxicated or Sedated No (0 pts) Impaired Gait No (0 pts) Mobility Assist Device Used No (0 pt) Altered Elimination No (0 pt) Score/Fall Risk Level 0 - 2 = Low Risk Oriented to surroundings, Maintained a safe environment, Educated pt \T\ family on fall prevention, incl call for assistance when getting out of bed. Abuse screen: Denies threats or abuse. Denies injuries from another. Nutritional screening: No deficits noted. Tuberculosis screening: No symptoms or risk factors identified. Vital Signs: 01:04 BP 156 / 92; Pulse 95; Resp 16; Temp 98.1(O); Pulse Ox 99% on R/A; Weight 87.09 kg (R); ll3 Height 4 ft. 11 in. (R); Pain 0/10; 02:00 BP 129 / 76; Pulse 90; Resp 16; Pulse Ox 96% on R/A; ll3 03:08 BP 142 / 79; Pulse 100; Resp 16; Pulse Ox 99% on R/A; ll3 01:04 Body Mass Index 38.78 (87.09 kg, 149.86 cm) ll3 01:04 Pain Scale: Adult ll3 ED Course: 01:04 Patient arrived in ED. ll3 01:04 Damion Monroy MD is Attending Physician. sp4 01:06 Triage completed. ll3 01:06 Arm band placed on Patient placed in an exam room, on a stretcher, on ekg monitor tech, ll3 on pulse oximetry. 01:25 No provider procedures requiring assistance completed. Inserted saline lock: 20 gauge pf1 in right forearm, using aseptic technique. Blood collected. 01:28 CBC with Diff Sent. pf1 01:28 CMP Sent. pf1 01:29 Lipase Sent. pf1 01:30 Patient has correct armband on for positive identification. Bed in low position. Call ll3 light in reach. Side rails up X 1. Adult w/ patient. 03:38 IV discontinued, intact, bleeding controlled, No redness/swelling at site. Pressure ll3 dressing applied. Administered Medications: 01:25 Drug: NS 0.9% IV 1000 ml Route: IV; Rate: 1 bolus; Site: right forearm; pf1 01:25 Drug: Ondansetron IVP 4 mg Route: IVP; Site: right forearm; pf1 03:19 Follow up: Response: No adverse reaction; Marked relief of symptoms ll3 02:12 Not Given (Patient Refused): metoCLOPramide IVP 10 mg IVP once; over 1 to 2 minutes pf1 02:15 Not Given (Patient Refused): Diazepam IVP 5 mg IVP once pf1 03:11 Drug: Potassium Chloride PO 40 mEq Route: PO; ll3 03:38 Follow up: Response: No adverse reaction ll3 Medication: 03:17 VIS not applicable for this client. ll3 Outcome: 03:20 Discharge ordered by . sp4 03:38 Discharged to home ambulatory, with significant other. ll3 03:38 Condition: stable 03:38 Discharge instructions given to patient, significant other, Instructed on discharge instructions, follow up and referral plans. medication usage, Demonstrated understanding of instructions, follow-up care, medications, Prescriptions given X 2. 03:38 Patient left the ED. ll3 Signatures: Brittany Townsend RN RN ll3 Debbie Mayers RN RN pf1 Damion Monroy MD MD sp4 Corrections: (The following items were deleted from the chart) 02:14 01:25 No provider procedures requiring assistance completed. pf1 pf1 02:14 01:25 Inserted saline lock: 20 gauge in right antecubital area, using aseptic pf1 technique. Blood collected. pf1 03:19 03:08 BP 142 / 79; Pulse 106bpm; Resp 16bpm; Pulse Ox 99% RA; ll3 ll3
[2023-03-14 03:42] VITALS: TEMP 98.1
[2023-03-14 03:44] VITALS: BP 142/79; O2SAT 99
== END 2023-03-14 03:38 | disposition home or self-care (01) ==
LOC: ER 00:58
DX: H81.393 Other peripheral vertigo, bilateral (principal); E11.9 Type 2 diabetes mellitus without complications; I10 Essential (primary) hypertension; Z88.2 Allergy status to sulfonamides
CPT/HCPCS: 85025; 36415; 83690; 80053; 96374; 99284; J2765; J3360; J2405; J7030